=== PATIENT | female | born 1940 | race Caucasian/White ===

== ENCOUNTER 2020-02-14 11:53 | Inpatient (IN) ==
[2020-02-14] MEDS ORDERED: 0.9 % SODIUM CHLORIDE 2,000 ML IV ONE (12:13)
[2020-02-14] MEDS ORDERED: LEVOFLOXACIN 500 MG/100 ML BAG IV ONE (12:16)
[2020-02-14] MEDS ORDERED: VANCOMYCIN 1,000 MG in 0.9 % SODIUM CHLORIDE 250 ML IV ONE (12:16)
[2020-02-14] MEDS ORDERED: ACETAMINOPHEN 325 MG TABLET PO ONE (12:16)
--- NOTE | 2020-02-14 12:31 | Emergency Department Note ---
Fever HPI General Chief Complaint: Fever Stated Complaint: fever, altered LOC Time Seen by Provider: 02/14/20 12:13 Source: patient and EMS Mode of arrival: EMS Limitations: no limitations History of Present Illness HPI Narrative: Narrative: 79-year-old female comes in for a fever of 104. She is also having trouble breathing. Looks like she had a spinal fusion lumbar by Dr. Bates 3 weeks ago-but this is healed well. And she had a UTI diagnosed 10 days ago by Bladimir Dickey here in the ER. She followed up the next day in clinic. I reviewed those 2 notes-she is supposed to have taken Macrobid for the UTI but it is not clear to me whether or not she did and she cannot tell me-she is a little bit confused this morning. She was also treated for BPPV with meclizine. Today the shortness of breath is causing her to have a respiration rate between 30 and 40-but her oxygen level of 90 without supplementation. It is unclear exactly how long she has had a fever but at least 1 or 2 days Her was asked again to take her to physical therapy for the vertigo today but instead brought her to the hospital because of her trouble breathing Related Data Home Medications Medication Instructions Recorded Confirmed atorvastatin 80 mg tablet mg PO 08/08/19 12/14/19 gabapentin 300 mg capsule 300 mg PO BID cap 08/08/19 12/14/19 hydrochlorothiazide 25 mg tablet mg PO 08/08/19 12/14/19 letrozole 2.5 mg tablet mg PO 08/08/19 12/14/19 nortriptyline 10 mg capsule mg PO 08/08/19 12/14/19 Previous Rx's Medication Instructions Recorded nitrofurantoin macrocrystal 100 mg PO Q12H #10 cap 02/04/20 meclizine 25 mg tablet 25 mg PO BID PRN #20 tab 02/07/20 Allergies Allergy/AdvReac Type Severity Reaction Status Date / Time iodine Allergy Severe Erythema Verified 12/14/19 11:51 penicillin G Allergy Severe Blisters Verified 12/14/19 11:51 tetracycline Allergy Severe Blisters Verified 12/14/19 11:51 Sulfa (Sulfonamide Allergy Intermediate Nausea Verified 02/04/20 17:21 Antibiotics) azithromycin Allergy Unknown Unknown Verified 02/05/20 11:14 Carbapenems Allergy Unknown Unknown Verified 02/05/20 11:14 Carbonic Anhydrase Inhibitors Allergy Unknown Unknown Verified 02/05/20 11:14 Cephalosporins Allergy Unknown Unknown Verified 02/05/20 11:14 doxycycline [DOXYCYCLINE] Allergy Unknown Unknown Verified 02/05/20 11:14 Iodinated Contrast Media Allergy Unknown Unknown Verified 02/05/20 11:14 Macrolide Antibiotics Allergy Unknown Unknown Verified 02/05/20 11:14 penicillin G procaine Allergy Unknown Unknown Verified 02/05/20 11:14 Penicillins Allergy Unknown Unknown Verified 02/05/20 11:14 pseudoephedrine Allergy Unknown Unknown Verified 02/05/20 11:14 sulfamethoxazole Allergy Unknown Unknown Verified 02/05/20 11:14 Sulfonylureas Allergy Unknown Unknown Verified 02/05/20 11:14 Tetracyclines Allergy Unknown Unknown Verified 02/05/20 11:14 Thiazides Allergy Unknown Unknown Verified 02/05/20 11:14 trimethoprim Allergy Unknown Unknown Verified 02/05/20 11:14 hydrocodone AdvReac Intermediate Hallucinati Verified 02/05/20 11:14 ng Review of Systems ROS ROS Narrative: Narrative: All systems ED: reviewed and negative except as stated. PFSH Narrative Patient History Narrative: Narrative: Medical/Surgical/Family History All Active Problems (Updated 02/14/20 @ 15:26 by Nestor Randle MD) Pneumonia (Acute) Sepsis (Acute) Benign paroxysmal positional vertigo (Acute) Acute UTI (Acute) Shortness of breath (Acute) H/O total hip arthroplasty (Acute) H/O bilateral mastectomy (Acute) History of breast cancer (Acute) Low back pain (Acute) Medical History (Updated 02/14/20 @ 15:26 by Nestor Randle MD) History of breast cancer (Acute) Low back pain (Acute) Surgical History (Updated 02/14/20 @ 12:36 by Nestor Randle MD) H/O bilateral mastectomy (Acute) H/O total hip arthroplasty (Acute) History of lumbosacral spine surgery (Acute) Social History Smoking Status: Never smoker Alcohol Intake Frequency: does not drink Substance Use: does not use Exam Narrative Narrative: Narrative: Mild tachypnea noted-however she can speak in full sente nces but she seems to be somewhat confused. Normocephalic atraumatic. Conjunctive are clear sclerae white nonicteric. No nasal discharge or congestion. Oropharynx pink and moist. Neck is supple without lymphadenopathy or thyromegaly. Heart is regular rate and rhythm no murmur appreciated. Lungs clear to auscultation bilaterally-however she has difficulty taking a deep breath. She does have an end expiratory wheeze. Abdomen soft nontender nondistended. No peritoneal signs or guarding. No pedal edema. +2 radial pulse. She is able to sit up for me and I did look at her wound site from lumbar surgery-there is no redness or drainage. The wound site looks very clean and well-healed. General Limitations: no limitations Course Vital Signs Vital signs: Vital Signs Temperature 104.1 F H 02/14/20 11:53 Pulse Rate 118 H 02/14/20 11:53 Respiratory Rate 25 H 02/14/20 11:53 Blood Pressure 148/127 02/14/20 11:53 Pulse Oximetry (%) 91 02/14/20 11:53 Temperature 100.7 F H 02/14/20 17:33 Pulse Rate 94 H 02/14/20 17:33 Respiratory Rate 28 H 02/14/20 17:33 Blood Pressure 139/63 02/14/20 17:33 Pulse Oximetry (%) 93 02/14/20 17:33 MDM MDM Narrative Medical decision making narrative: Narrative: Suspect sepsis from respiratory issue versus UTI versus other infection. Noted recent surgery but she is not complaining of significant pain-surgical site is healed well. We will go ahead and get cultures start antibiotics-it is noted that her multiple allergies limit antibiotic choices. Laboratories ordered as well as chest x-ray Chest x-ray shows bilateral pneumonia worse on the right. ABG shows pH 7.53 PCO2 of 31 PO2 of 65 on room air-we will start her on oxygen. Rapid flu and Covid were negative. Sent off for PCR Noted leukocytosis and elevated procalcitonin. Likely early sepsis from pneumonia. When I reevaluated her a note that she is much more talkative and breathing much better after getting albuterol and other treatments. However she remains tachypneic and febrile despite acetaminophen. She is agreeable with coming in the hospital when I discussed her situation and results with her. I then discussed the situation with Dr. Mccurdy who agreed except the patient for further care and evaluation in the hospital Lab Data Lab results reviewed: Yes I reviewed the patient's lab results. Result diagrams: 02/14/20 12:35 02/14/20 12:35 Labs: Lab Results 02/14/20 02/14/20 02/14/20 Range/Units 12:35 12:35 12:35 WBC 16.4 H (4.5-11.0) K/mcL RBC 3.91 L (4.00-5.20) M/mcL Hgb 13.5 (12.0-15.0) g/dL Hct 39.9 (36.0-48.0) % MCV 102.0 H (80.0-100.0) fL MCH 34.5 H (26.0-34.0) pg MCHC 33.8 (31.0-36.0) g/dL RDW 12.3 (11.5-14.5) % Plt Count 195 (140-440) K/mcL MPV 11.5 H (7.4-10.4) fL Neut % (Auto) 90.5 H (38.0-78.0) % Lymph % (Auto) 3.5 L (15.0-49.0) % [place] % (Auto) 3.8 (1.0-12.0) % Eos % (Auto) 2.1 (0.0-7.0) % Baso % (Auto) 0.1 (0.0-2.0) % Lymph # (Auto) 0.57 L (1.50-4.80) K/mcL [place] # (Auto) 0.62 (0.10-0.90) K/mcL Eos # (Auto) 0.34 (0.00-0.70) K/mcL Baso # (Auto) 0.02 (0.00-0.20) K/mcL Absolute Neutrophils 14.81 H (1.80-8.00) K/mcL VBG Lactic Acid 1.7 (0.5-2.0) mmol/L Sodium 135 (133-145) mmol/L Potassium 4.0 (3.3-5.1) mmol/L Chloride 96 (96-108) mmol/L Carbon Dioxide 23 (22-30) mmol/L Anion Gap 16.0 (8.0-16.0) BUN 19 (8-23) mg/dL Creatinine 0.9 (0.6-1.1) mg/dL GFR Calculation 60 Glucose 149 H (70-105) mg/dL Calcium 9.6 (8.6-10.4) mg/dL Total Bilirubin 0.7 (0.1-1.0) mg/dL AST 34 H (<32) U/L ALT 22 (<40) U/L Alkaline Phosphatase 191 H (39-117) U/L Troponin T (<0.03) ng/mL C-Reactive Protein 14.10 H (0.03-0.80) mg/dL Total Protein 7.5 (5.9-8.4) gm/dL Albumin 4.0 (3.2-5.2) gm/dL Globulin 3.5 (2.2-3.7) gm/dL Albumin/Globulin Ratio 1.1 (1.0-2.3) Procalcitonin (<0.10) ng/mL Urine Color Urine Appearance (Clear) Urine pH (5.0-9.0) Ur Specific [place] (1.000-1.035) Urine Protein (Negative) mg/dL Urine Glucose (UA) (Negative) mg/dL Urine Ketones (Negative) mg/dL Urine Occult Blood (Negative) mg/dL Urine Nitrate (Negative) Urine Bilirubin (Negative) mg/dL Urine Urobilinogen mg/dL Ur Leukocyte Esterase (Negative) /ug Urine RBC (0-3) /hpf Urine WBC (0-4) /hpf Ur Squamous Epith Cells (0-4) /hpf Urine Bacteria (0) /hpf Urine Mucus (None) /hpf Ur Culture Indicated? 02/14/20 02/14/20 02/14/20 Range/Units 12:35 12:35 13:10 WBC (4.5-11.0) K/mcL RBC (4.00-5.20) M/mcL Hgb (12.0-15.0) g/dL Hct (36.0-48.0) % MCV (80.0-100.0) fL MCH (26.0-34.0) pg MCHC (31.0-36.0) g/dL RDW (11.5-14.5) % Plt Count (140-440) K/mcL MPV (7.4-10.4) fL Neut % (Auto) (38.0-78.0) % Lymph % (Auto) (15.0-49.0) % [place] % (Auto) (1.0-12.0) % Eos % (Auto) (0.0-7.0) % Baso % (Auto) (0.0-2.0) % Lymph # (Auto) (1.50-4.80) K/mcL [place] # (Auto) (0.10-0.90) K/mcL Eos # (Auto) (0.00-0.70) K/mcL Baso # (Auto) (0.00-0.20) K/mcL Absolute Neutrophils (1.80-8.00) K/mcL VBG Lactic Acid (0.5-2.0) mmol/L Sodium (133-145) mmol/L Potassium (3.3-5.1) mmol/L Chloride (96-108) mmol/L Carbon Dioxide (22-30) mmol/L Anion Gap (8.0-16.0) BUN (8-23) mg/dL Creatinine (0.6-1.1) mg/dL GFR Calculation Glucose (70-105) mg/dL Calcium (8.6-10.4) mg/dL Total Bilirubin (0.1-1.0) mg/dL AST (<32) U/L ALT (<40) U/L Alkaline Phosphatase (39-117) U/L Troponin T < 0.01 (<0.03) ng/mL C-Reactive Protein (0.03-0.80) mg/dL Total Protein (5.9-8.4) gm/dL Albumin (3.2-5.2) gm/dL Globulin (2.2-3.7) gm/dL Albumin/Globulin Ratio (1.0-2.3) Procalcitonin 0.75 H (<0.10) ng/mL Urine Color Yellow Urine Appearance Clear (Clear) Urine pH 6.0 (5.0-9.0) Ur Specific [place] 1.016 (1.000-1.035) Urine Protein 30 A (Negative) mg/dL Urine Glucose (UA) Negative (Negative) mg/dL Urine Ketones Negative (Negative) mg/dL Urine Occult Blood Negative (Negative) mg/dL Urine Nitrate Negative (Negative) Urine Bilirubin Negative (Negative) mg/dL Urine Urobilinogen Negative mg/dL Ur Leukocyte Esterase Negative (Negative) /ug Urine RBC < 1 (0-3) /hpf Urine WBC 3 (0-4) /hpf Ur Squamous Epith Cells 0 (0-4) /hpf Urine Bacteria None (0) /hpf Urine Mucus Few A (None) /hpf Ur Culture Indicated? No Radiology Data Radiology results reviewed: Yes I reviewed the patient's radiology results. EKG Data EKG #1: EKG attestation: Yes I reviewed and interpreted this EKG. and Yes There are no EKG findings of acute coronary syndrome EKG results narrative: EKG shows a rate of 120 several PACs. Sinus tachycardia is noted Discharge Plan Patient/Caregiver Discharge Instructions Pt seen by [employer]/PA only: No Clinical Impression: Pneumonia Qualifiers: Pneumonia type: due to unspecified organism Laterality: right Lung location: lower lobe of lung Qualified Code(s): J18.9 - Pneumonia, unspecified organism Sepsis Qualifiers: Sepsis type: sepsis due to unspecified organism Sepsis acute organ dysfunction status: with acute organ dysfunction Severe sepsis acute organ dysfunction type: acute respiratory failure Acute respiratory failure type: with hypoxia Severe sepsis shock status: without septic shock Qualified Code(s): A41.9 - Sepsis, unspecified organism Patient Disposition: Xfer As Inpt ([facility]) Condition: Serious Follow up with: Chuy Bates MD [Physician] - Salvador Ontiveros MD [Primary Care Provider] - Prescriptions: No Action meclizine 25 mg tablet 25 mg PO BID PRN (Reason: vertigo) Qty: 20 RF: 0 letrozole 2.5 mg tablet PO RF: 0 gabapentin 300 mg capsule 300 mg PO BID RF: 0 hydrochlorothiazide 25 mg tablet PO RF: 0 atorvastatin 80 mg tablet PO RF: 0 nortriptyline 10 mg capsule PO RF: 0 nitrofurantoin macrocrystal 100 mg capsule 100 mg PO Q12H Qty: 10 RF: 0
[2020-02-14] MEDS ORDERED: ALBUTEROL SULFATE 200 PUFF INHALER INH ONE (12:37)
[2020-02-14] MEDS ORDERED: TERBUTALINE 1 MG/ML VIAL SQ ONE (12:37)
--- NOTE | 2020-02-14 12:46 | XRay Report ---
HISTORY: Fever, sepsis, decreased level of consciousness, prior breast cancer FINDINGS: A subtle alveolar infiltrate has developed around the right lower hilum and there are prominent increased interstitial lung markings throughout the remainder of both lung reyna. No lobar consolidation is present. There is no pleural effusion. The heart size is normal. No lung mass is present. There are clips in the left axilla. Moderate arthritis is present in the left shoulder. No lytic or blastic metastasis are detected. Comparison the prior exam from 12/14/19 shows the infiltrates in both lungs are new. IMPRESSION: Mild bilateral pneumonia with the greatest involvement in the right lower lobe Interpreted and Authenticated by: Pool Radford 02/14/20
[2020-02-14 13:46] LABS: Basophils # (Auto) 0.02 K/mcL (0.00-0.20); Basophils % (Auto) 0.1 % (0.0-2.0); Eosinophils # (Auto) 0.34 K/mcL (0.00-0.70); Eosinophils % (Auto) 2.1 % (0.0-7.0); Hematocrit 39.9 % (36.0-48.0); Hemoglobin 13.5 g/dL (12.0-15.0); Lymphocytes # (Auto) 0.57 K/mcL (1.50-4.80); Lymphocytes % (Auto) 3.5 % (15.0-49.0); Mean Corpuscular HGB Conc 33.8 g/dL (31.0-36.0); Mean Platelet Volume 11.5 fL (7.4-10.4); Monocytes # (Auto) 0.62 K/mcL (0.10-0.90); Monocytes % (Auto) 3.8 % (1.0-12.0); Neutrophils % (Auto) 90.5 % (38.0-78.0); Platelet Count 195 K/mcL (140-440); RBC 3.91 M/mcL (4.00-5.20); Red Cell Distribution Width 12.3 % (11.5-14.5); WBC 16.4 K/mcL (4.5-11.0)
[2020-02-14 14:14] LABS: ALT/SGPT 22 U/L (<40); AST/SGOT 34 U/L (<32); Albumin/Globulin Ratio 1.1 (1.0-2.3); Alkaline Phosphatase 191 U/L (39-117); Bilirubin,Total 0.7 mg/dL (0.1-1.0); Blood Urea Nitrogen 19 mg/dL (8-23); Calcium 9.6 mg/dL (8.6-10.4); Carbon Dioxide 23 mmol/L (22-30); Chloride 96 mmol/L (96-108); Globulin 3.5 gm/dL (2.2-3.7); Glomerular Filtration Rate 60; Glucose 149 mg/dL (70-105)
[2020-02-14 14:15] LABS: Appearance,Urine CLEAR (Clear); Bilirubin,Urine Negative (Negative); Color,Urine YELLOW; Culture Indicated,Urine No; Glucose,Urine (UA) Negative (Negative); Ketones,Urine Negative (Negative); Leukocyte Esterase,Urine Negative /ug (Negative); Mucus,Urine FEW /hpf; Nitrate,Urine Negative (Negative); Protein,Urine 30 mg/dL (Negative); Specific Gravity,Urine 1.016 (1.000-1.035); Urine Blood Negative (Negative); Urine RBC < 1 /hpf (0-3); Urine Squamous Epithelial Cell 0 /hpf (0-4); Urine WBC 3 /hpf (0-4); Urobilinogen,Urine Negative
--- NOTE | 2020-02-14 17:46 | Internal Med History&Physical ---
HPI History of Present Illness Patient information: Note initiated : 02/14/20 at 5:46 pm Service Date, if different from initiated Date: [] Patient: Angie Balderas a 79 y/o F admitted on for fever, altered LOC. Chief Complaint: Weakness, fever, shaking chills and shortness of breath History of present illness: Ms. Balderas is a 79 year old F with known history of breast cancer/hypertension who lives with her and presents to the ER for evaluation. Patient has been experiencing shaking chills/fever/cough and shortness of breath since late yesterday evening. She woke up this morning confused and feeling puny with associated malaise but no diarrhea or nausea or vomiting. With increasing concerns patient's called 911 and was brought into the ER. Initial work-up was consistent with severe sepsis with elevated white count/fever of 102.5/tachycardia tachypnea and hypoxia. Chest imaging consistent with multifocal bilateral pneumonia. Patient was started on antibiotic coverage after cultures were drawn. Covid 19 test was negative. Hospital service was consulted for admission in light of above. At the time of evaluation patient is feeling a lot better. She is able to talk and provide a detailed history. She denies recent sick contacts. She has had back surgery 4 months ago and has been at home for the major part of the last few months. She denies changes in medications. She denies diarrhea, dysuria, bloody stool, chest pain, lightheadedness dizziness. She endorses to frequent symptoms of vertigo for which he undergoes vestibular rehab. Review of systems 10 point review system was performed and is negative except for ones discussed above PFSH PFSH All Active Problems (Updated 02/14/20 @ 15:26 by Nestor Randle MD) Pneumonia (Acute) Sepsis (Acute) Benign paroxysmal positional vertigo (Acute) Acute UTI (Acute) Shortness of breath (Acute) H/O total hip arthroplasty (Acute) H/O bilateral mastectomy (Acute) History of breast cancer (Acute) Low back pain (Acute) Medical History (Updated 02/14/20 @ 15:26 by Nestor Randle MD) History of breast cancer (Acute) Low back pain (Acute) Surgical History (Updated 02/14/20 @ 12:36 by Nestor Randle MD) H/O bilateral mastectomy (Acute) H/O total hip arthroplasty (Acute) History of lumbosacral spine surgery (Acute) Social History (Updated 02/05/20 @ 11:31 by Lyssa Haji CMA) household members: spouse housing: apartment lives independently: Yes marital status: smoking status: Never smoker alcohol intake frequency: does not drink substance use type: does not use MEDS/ALLERGIES Home Medications and Allergies Home Medications Medication Instructions Recorded Confirmed Type atorvastatin 80 mg tablet mg PO 08/08/19 12/14/19 History gabapentin 300 mg capsule 300 mg PO BID cap 08/08/19 12/14/19 History hydrochlorothiazide 25 mg tablet mg PO 08/08/19 12/14/19 History letrozole 2.5 mg tablet mg PO 08/08/19 12/14/19 History nortriptyline 10 mg capsule mg PO 08/08/19 12/14/19 History nitrofurantoin macrocrystal 100 mg PO Q12H #10 cap 02/04/20 Rx meclizine 25 mg tablet 25 mg PO BID PRN #20 tab 02/07/20 02/07/20 Rx Allergies Allergy/AdvReac Type Severity Reaction Status Date / Time iodine Allergy Severe Erythema Verified 12/14/19 11:51 penicillin G Allergy Severe Blisters Verified 12/14/19 11:51 tetracycline Allergy Severe Blisters Verified 12/14/19 11:51 Sulfa (Sulfonamide Allergy Intermediate Nausea Verified 02/04/20 17:21 Antibiotics) azithromycin Allergy Unknown Unknown Verified 02/05/20 11:14 Carbapenems Allergy Unknown Unknown Verified 02/05/20 11:14 Carbonic Anhydrase Inhibitors Allergy Unknown Unknown Verified 02/05/20 11:14 Cephalosporins Allergy Unknown Unknown Verified 02/05/20 11:14 doxycycline [DOXYCYCLINE] Allergy Unknown Unknown Verified 02/05/20 11:14 Iodinated Contrast Media Allergy Unknown Unknown Verified 02/05/20 11:14 Macrolide Antibiotics Allergy Unknown Unknown Verified 02/05/20 11:14 penicillin G procaine Allergy Unknown Unknown Verified 02/05/20 11:14 Penicillins Allergy Unknown Unknown Verified 02/05/20 11:14 pseudoephedrine Allergy Unknown Unknown Verified 02/05/20 11:14 sulfamethoxazole Allergy Unknown Unknown Verified 02/05/20 11:14 Sulfonylureas Allergy Unknown Unknown Verified 02/05/20 11:14 Tetracyclines Allergy Unknown Unknown Verified 02/05/20 11:14 Thiazides Allergy Unknown Unknown Verified 02/05/20 11:14 trimethoprim Allergy Unknown Unknown Verified 02/05/20 11:14 hydrocodone AdvReac Intermediate Hallucinati Verified 02/05/20 11:14 ng EXAM Constitutional Vitals: Temp Pulse Resp BP Pulse Ox 100.7 F H 94 H 28 H 139/63 93 02/14/20 17:33 02/14/20 17:33 02/14/20 17:33 02/14/20 17:33 02/14/20 17:33 Patient alert anxious Head normocephalic Oral cavity dry with crusted lips No ear nose discharge Eye movement symmetrical Neck supple no lymphadenopathy S1-S2 tachycardia regular Rapid shallow and labored breathing Nondistended nontender abdomen Lower extremity no cyanosis clubbing or joint swelling Skin no suspicious lesion Psych anxious but no hallucination Neuro normal higher function GCS 14 DATA Data Completed and Pending Labs: Labs from last 24 hours 02/14/20 02/14/20 02/14/20 13:10 12:35 12:35 WBC RBC Hgb Hct MCV MCH MCHC RDW Plt Count MPV Neut % (Auto) Lymph % (Auto) [place] % (Auto) Eos % (Auto) Baso % (Auto) Lymph # (Auto) [place] # (Auto) Eos # (Auto) Baso # (Auto) Absolute Neutrophils VBG Lactic Acid Sodium Potassium Chloride Carbon Dioxide Anion Gap BUN Creatinine GFR Calculation Glucose Calcium Total Bilirubin AST ALT Alkaline Phosphatase Troponin T < 0.01 C-Reactive Protein Total Protein Albumin Globulin Albumin/Globulin Ratio Procalcitonin 0.75 H Urine Color Yellow Urine Appearance Clear Urine pH 6.0 Ur Specific [place] 1.016 Urine Protein 30 A Urine Glucose (UA) Negative Urine Ketones Negative Urine Occult Blood Negative Urine Nitrate Negative Urine Bilirubin Negative Urine Urobilinogen Negative Ur Leukocyte Esterase Negative Urine RBC < 1 Urine WBC 3 Ur Squamous Epith Cells 0 Urine Bacteria None Urine Mucus Few A Ur Culture Indicated? No 02/14/20 02/14/20 02/14/20 12:35 12:35 12:35 WBC 16.4 H RBC 3.91 L Hgb 13.5 Hct 39.9 MCV 102.0 H MCH 34.5 H MCHC 33.8 RDW 12.3 Plt Count 195 MPV 11.5 H Neut % (Auto) 90.5 H Lymph % (Auto) 3.5 L [place] % (Auto) 3.8 Eos % (Auto) 2.1 Baso % (Auto) 0.1 Lymph # (Auto) 0.57 L [place] # (Auto) 0.62 Eos # (Auto) 0.34 Baso # (Auto) 0.02 Absolute Neutrophils 14.81 H VBG Lactic Acid 1.7 Sodium 135 Potassium 4.0 Chloride 96 Carbon Dioxide 23 Anion Gap 16.0 BUN 19 Creatinine 0.9 GFR Calculation 60 Glucose 149 H Calcium 9.6 Total Bilirubin 0.7 AST 34 H ALT 22 Alkaline Phosphatase 191 H Troponin T C-Reactive Protein 14.10 H Total Protein 7.5 Albumin 4.0 Globulin 3.5 Albumin/Globulin Ratio 1.1 Procalcitonin Urine Color Urine Appearance Urine pH Ur Specific [place] Urine Protein Urine Glucose (UA) Urine Ketones Urine Occult Blood Urine Nitrate Urine Bilirubin Urine Urobilinogen Ur Leukocyte Esterase Urine RBC Urine WBC Ur Squamous Epith Cells Urine Bacteria Urine Mucus Ur Culture Indicated? A/P Narrative A/P Narrative: * Severe sepsis with endorgan dysfunction including acute change mental status/hypoxia and elevated LFTs. Broad antibiotic coverage/management guidelines/crystalloids * Bilateral multifocal Pneumonia likely community-acquired. Initiate antibiotic coverage including Levaquin/vancomycin for gram-negative/gram-positive coverage * Acute respiratory failure with hypoxia continue supplemental oxygen. Secondary to pneumonia * History of hypertension continue thiazide neuropathy continue nortriptyline/gabapentin * History of breast cancer on letrozole * History of vertigo on meclizine * Hyperlipidemia on statin * Prophylaxis Heparin Plan * Inpatient PCU admission made of severe sepsis and endorgan dysfunction * Antibiotic coverage/supplemental oxygen/hemodynamic support * Pre-existing medical condition management on home medications * PT OT nutrition support * Discharge planning Time Spent With Patient Time: Total time spent is greater than 50% in coordination of care (as documented) at patient's floor/unit and/or counseling patient:
[2020-02-14] MEDS ORDERED: MELATONIN 3 MG TABLET PO PRN (20:19)
[2020-02-14] MEDS ORDERED: IPRATROPIUM/ALBUTEROL 3 ML AMPUL.NEB NEB PRN (20:19)
[2020-02-14] MEDS ORDERED: POTASSIUM CHLORIDE 20 MEQ PACKET PO PRN (20:19)
[2020-02-14] MEDS ORDERED: POTASSIUM CHLORIDE 40 MEQ in DEXTROSE 5% IN WATER 500 ML IV PRN (20:19)
[2020-02-14] MEDS ORDERED: ONDANSETRON 4 MG/2 ML VIAL IV PRN (20:19)
[2020-02-14] MEDS ORDERED: VANCOMYCIN PER PHARMACY IV SCH (20:19)
[2020-02-14] MEDS ORDERED: ACETAMINOPHEN 325 MG TABLET PO PRN (20:19)
[2020-02-14] MEDS ORDERED: 0.9 % SODIUM CHLORIDE 1,000 ML IV SCH (20:19)
[2020-02-14] MEDS ORDERED: ONDANSETRON 4 MG ODT TABLET SL PRN (20:19)
[2020-02-14] MEDS ORDERED: NOREPINEPHRINE BITARTRATE 8 MG in 0.9 % SODIUM CHLORIDE 242 ML IV PRN (20:19)
[2020-02-14] MEDS ORDERED: ACETAMINOPHEN 650 MG/65 ML BAG IV PRN (20:19)
[2020-02-14] MEDS ORDERED: POLYETHYLENE GLYCOL 3350 17 GM PACKET PO PRN (20:19)
[2020-02-14] MEDS ORDERED: BISACODYL 10 MG SUPP.RECT PR PRN (20:19)
[2020-02-14] MEDS ORDERED: MAGNESIUM SULFATE 2 GM/50 ML BAG IV PRN (20:19)
[2020-02-14] MEDS: 0.9 % SODIUM CHLORIDE 250 ML IV SCH (20:54)
[2020-02-14] MEDS ORDERED: VANCOMYCIN 1,000 MG in 0.9 % SODIUM CHLORIDE 250 ML IV SCH (21:00)
[2020-02-14] MEDS: BUDESONIDE 0.5 MG/2 ML AMPUL.NEB NEB SCH (21:00)
[2020-02-14] MEDS ORDERED: SENNOSIDES/DOCUSATE SODIUM 1 TAB TABLET PO SCH (21:00)
[2020-02-14] MEDS: HEPARIN 5,000 UNIT/ML VIAL SQ SCH (21:00)
[2020-02-14] MEDS: DOCUSATE SODIUM 100 MG CAPSULE PO SCH (21:09)
[2020-02-14] MEDS: 0.9 % SODIUM CHLORIDE 10 ML SYRINGE IV SCH (21:10)
[2020-02-14] MEDS: metroNIDAZOLE 500 MG/100 ML BAG IV SCH (23:54)
[2020-02-15] MEDS: metroNIDAZOLE 500 MG/100 ML BAG IV SCH ×3 (05:08→17:25)
[2020-02-15] MEDS: 0.9 % SODIUM CHLORIDE 10 ML SYRINGE IV SCH ×4 (05:09→22:40)
[2020-02-15 07:00] LABS: Basophils # (Auto) 0.01 K/mcL (0.00-0.20); Basophils % (Auto) 0.1 % (0.0-2.0); Eosinophils % (Auto) 5.3 % (0.0-7.0); Hematocrit 36.5 % (36.0-48.0); Hemoglobin 11.7 g/dL (12.0-15.0); Lymphocytes # (Auto) 0.73 K/mcL (1.50-4.80); Lymphocytes % (Auto) 6.4 % (15.0-49.0); Mean Cell Volume 106.4 fL (80.0-100.0); Mean Corpuscular HGB Conc 32.1 g/dL (31.0-36.0); Mean Platelet Volume 11.5 fL (7.4-10.4); Monocytes # (Auto) 0.96 K/mcL (0.10-0.90); Monocytes % (Auto) 8.4 % (1.0-12.0); Neutrophils % (Auto) 79.8 % (38.0-78.0); Platelet Count 174 K/mcL (140-440); RBC 3.43 M/mcL (4.00-5.20); Red Cell Distribution Width 12.5 % (11.5-14.5); WBC 11.4 K/mcL (4.5-11.0)
[2020-02-15 07:36] LABS: ALT/SGPT 17 U/L (<40); AST/SGOT 31 U/L (<32); Albumin 3.4 gm/dL (3.2-5.2); Albumin/Globulin Ratio 1.1 (1.0-2.3); Alkaline Phosphatase 154 U/L (39-117); Bilirubin,Direct < 0.2 mg/dL (<0.3); Bilirubin,Total 0.5 mg/dL (0.1-1.0); Blood Urea Nitrogen 21 mg/dL (8-23); Calcium 9.1 mg/dL (8.6-10.4); Carbon Dioxide 20 mmol/L (22-30); Chloride 96 mmol/L (96-108); Glomerular Filtration Rate 82; Glucose 106 mg/dL (70-105); Lactate Dehydrogenase 287 U/L (135-225); Phosphorous 2.6 mg/dL (2.5-4.5); Triglycerides 131 mg/dL (<150); Uric Acid 5.6 mg/dL (2.5-8.0)
[2020-02-15] MEDS: BUDESONIDE 0.5 MG/2 ML AMPUL.NEB NEB SCH ×2 (08:00→22:28)
[2020-02-15] MEDS: DOCUSATE SODIUM 100 MG CAPSULE PO SCH ×2 (08:37→21:48)
[2020-02-15] MEDS: 0.9 % SODIUM CHLORIDE 250 ML IV SCH ×3 (08:37→13:24)
[2020-02-15] MEDS ORDERED: VANCOMYCIN 1,000 MG in 0.9 % SODIUM CHLORIDE 250 ML IV SCH ×2 (09:00→21:00)
[2020-02-15] MEDS ORDERED: MULTIVIT,THER IRON,CA,FA & MIN 1 TABLET PO SCH (09:00)
[2020-02-15] MEDS ORDERED: LEVOFLOXACIN 750 MG/150 ML BAG IV SCH (10:00)
[2020-02-15] MEDS: HEPARIN 5,000 UNIT/ML VIAL SQ SCH ×2 (10:52→21:47)
[2020-02-15] MEDS ORDERED: MELATONIN 3 MG TABLET PO PRN (12:50)
[2020-02-15] MEDS ORDERED: ONDANSETRON 4 MG/2 ML VIAL IV PRN (12:50)
[2020-02-15] MEDS ORDERED: ONDANSETRON 4 MG ODT TABLET SL PRN (12:50)
[2020-02-15] MEDS ORDERED: BISACODYL 10 MG SUPP.RECT PR PRN (12:50)
[2020-02-15] MEDS ORDERED: POTASSIUM CHLORIDE 40 MEQ in DEXTROSE 5% IN WATER 500 ML IV PRN (12:50)
[2020-02-15] MEDS ORDERED: VANCOMYCIN PER PHARMACY IV SCH (12:50)
[2020-02-15] MEDS ORDERED: POLYETHYLENE GLYCOL 3350 17 GM PACKET PO PRN (12:50)
[2020-02-15] MEDS ORDERED: MAGNESIUM SULFATE 2 GM/50 ML BAG IV PRN (12:50)
[2020-02-15] MEDS ORDERED: HYDROcodone/APAP 10/325MG TABLET PO PRN (12:50)
[2020-02-15] MEDS ORDERED: MECLIZINE 25 MG TABLET PO PRN (12:50)
[2020-02-15] MEDS ORDERED: POTASSIUM CHLORIDE 20 MEQ PACKET PO PRN (12:50)
[2020-02-15] MEDS ORDERED: ACETAMINOPHEN 650 MG/65 ML BAG IV PRN (12:50)
[2020-02-15] MEDS ORDERED: NOREPINEPHRINE BITARTRATE 8 MG in 0.9 % SODIUM CHLORIDE 242 ML IV PRN (12:50)
[2020-02-15] MEDS ORDERED: ACETAMINOPHEN 325 MG TABLET PO PRN (12:50)
[2020-02-15] MEDS ORDERED: traMADol 50 MG TABLET PO PRN (12:50)
[2020-02-15] MEDS ORDERED: IPRATROPIUM/ALBUTEROL 3 ML AMPUL.NEB NEB PRN (12:50)
--- NOTE | 2020-02-15 12:53 | Internal Med Progress Note ---
SUBJECTIVE Subjective Patient information: Note initiated : 02/15/20 at 12:50 pm Service Date, if different from initiated Date: [] Patient: Angie Balderas a 79 y/o F admitted on 02/14/20 for fever, altered LOC. Chief Complaint: [] Interval history: History of present illness: Ms. Balderas is a 79 year old F with known history of breast cancer/hypertension who lives with her and presents to the ER for evaluation. Patient has been experiencing shaking chills/fever/cough and shortness of breath since late yesterday evening. She woke up this morning confused and feeling puny with associated malaise but no diarrhea or nausea or vomiting. With increasing concerns patient's called 911 and was brought into the ER. Initial work-up was consistent with severe sepsis with elevated white count/fever of 102.5/tachycardia tachypnea and hypoxia. Chest imaging consistent with multifocal bilateral pneumonia. Patient was started on antibio tic coverage after cultures were drawn. Covid 19 test was negative. Hospital service was consulted for admission in light of above. At the time of evaluation patient is feeling a lot better. She is able to talk and provide a detailed history. She denies recent sick contacts. She has had back surgery 4 months ago and has been at home for the major part of the last few months. She denies changes in medications. She denies diarrhea, dysuria, bloody stool, chest pain, lightheadedness dizziness. She endorses to frequent symptoms of vertigo for which he undergoes vestibular rehab. 02/14-patient doing a lot better. White count down from 16.4-11.4. Currently on room air. Tachypnea improved. Blood pressure stable. Transfer to medical floor. COVID-19 negative. LFTs downtrending. Tachycardia improving. Continuing antibiotic coverage on Levaquin/vancomycin Constitutional Vitals: Vital Signs Temp Pulse Resp BP Pulse Ox 98.6 F 88 20 88/71 95 02/15/20 12:01 02/15/20 12:05 02/15/20 12:05 02/15/20 12:01 02/15/20 12:05 Period Temp Pulse Resp BP Sys/Restrepo Pulse Ox Last 24 Hr 97.2 F-103.2 F 73-118 10-37 88-196/58-102 91-100 Intake and Output 02/14/20 02/15/20 02/15/20 21:59 05:59 13:59 Intake Total 2350 100 350 Output Total 0 400 Balance 2350 -300 350 Weight 66.088 kg 66.088 kg Patient Weight 02/16/20 05:59 Weight 66.088 kg Alert oriented Nonlabored breathing No telemetry events No anxiety Intake & Output: Intake & Output 02/14/20 02/15/20 02/15/20 21:59 05:59 13:59 Intake Total 2350 100 350 Output Total 0 400 Balance 2350 -300 350 Weight 66.088 kg 66.088 kg Intake: IV 2350 100 350 Sodium Chloride 0.9% 2,000 ml @ 2000 Wide Open IV .Q0M ONE Rx#: [id number] Vancomycin 1,000 mg In Sodium 250 250 Chloride 0.9% 250 ml @ 250 mls/ hr IV Q12H [facility] Rx#:[id number] Output: Urine Catheter Amount 0 400 Other: Urine Appearance Cloudy Uretheral ([place]) Clear Clear Urine Color Dark Yellow Uretheral ([place]) Dark Yellow Dark Yellow Urine Odor Strong Uretheral ([place]) Normal Normal Stool Size Large Stool Color Brown Green Stool Consistency Soft # Bowel Movements 1 OBJ DATA Labs CBC & Chem 7: 02/15/20 05:25 02/15/20 05:25 Labs: Abnormal Lab Results 02/15/20 02/15/20 02/14/20 05:25 05:25 13:10 WBC 11.4 H RBC 3.43 L Hgb 11.7 L MCV 106.4 H MCH 34.1 H MPV 11.5 H Neut % (Auto) 79.8 H Lymph % (Auto) 6.4 L Lymph # (Auto) 0.73 L [place] # (Auto) 0.96 H Absolute Neutrophils 9.07 H Carbon Dioxide 20 L Anion Gap 18.0 H Glucose 106 H GGT 120 H AST Alkaline Phosphatase 154 H Lactate Dehydrogenase 287 H C-Reactive Protein Procalcitonin Urine Protein 30 A Urine Mucus Few A 02/14/20 02/14/20 02/14/20 12:35 12:35 12:35 WBC 16.4 H RBC 3.91 L Hgb MCV 102.0 H MCH 34.5 H MPV 11.5 H Neut % (Auto) 90.5 H Lymph % (Auto) 3.5 L Lymph # (Auto) 0.57 L [place] # (Auto) Absolute Neutrophils 14.81 H Carbon Dioxide Anion Gap Glucose 149 H GGT AST 34 H Alkaline Phosphatase 191 H Lactate Dehydrogenase C-Reactive Protein 14.10 H Procalcitonin 0.75 H Urine Protein Urine Mucus Meds: Medications Acetaminophen (Tylenol) 650 mg PO Q4-6HP PRN; Protocol PRN Reason: Per Pain Protocol/Fever > 101 Last Admin: 02/14/20 21:01 Dose: 650 mg Documented by: Albuterol/Ipratropium (Duoneb) 3 ml NEB Q4HP PRN PRN Reason: Shortness Of Breath Bisacodyl (Dulcolax) 10 mg [place] Q2-3DAYS PRN PRN Reason: Constipation Budesonide (Pulmicort) 0.5 mg NEB Q12 [facility] Last Admin: 02/15/20 08:00 Dose: 0.5 mg Documented by: Docusate Sodium (Colace) 100 mg PO BID [facility] Last Admin: 02/15/20 08:37 Dose: Not Given Documented by: Guaifenesin (Robitussin) 200 mg PO Q4HP PRN PRN Reason: Congestion Heparin Sodium (Porcine) (Heparin) 5,000 unit SQ Q12 [facility] Last Admin: 02/15/20 10:52 Dose: 5,000 unit Documented by: Potassium Chloride 40 meq/ (Dextrose) 520 mls @ 130 mls/hr IV UD PRN PRN Reason: K+ = or < 3.5 Acetaminophen (Ofirmev) 650 mg in 65 mls @ 130 mls/hr IV Q6HP PRN; Protocol PRN Reason: Per Pain Protocol/Fever > 101 Magnesium Sulfate (Magnesium Sulfate) 2 gm in 50 mls @ 50 mls/hr IV UD PRN PRN Reason: MG = or < 1.7 Last Admin: 02/15/20 12:28 Dose: 50 mls/hr Documented by: Metronidazole (Flagyl) 500 mg in 100 mls @ 100 mls/hr IV Q6H [facility]; Protocol Last Admin: 02/15/20 12:25 Dose: 100 mls/hr Documented by: Sodium Chloride (Sodium Chloride 0.9%) 1,000 mls @ 50 mls/hr IV .Q20H [facility] Stop: 02/17/20 08:18 Last Admin: 02/14/20 20:53 Dose: 50 mls/hr Documented by: Levofloxacin (Levaquin) 750 mg in 150 mls @ 100 mls/hr IV Q24H [facility]; Protocol Last Admin: 02/15/20 10:52 Dose: 100 mls/hr Documented by: Norepinephrine Bitartrate 8 mg (/ Sodium Chloride) 250 mls @ 18.75 mls/hr IV Q14H PRN; Protocol PRN Reason: Keep MAP>70 Sodium Chloride (Sodium Chloride 0.9%) 250 mls @ 20 mls/hr IV .[id number] [facility] Last Admin: 02/15/20 08:37 Dose: Not Given Documented by: Vancomycin HCl 1,000 mg/ (Sodium Chloride) 250 mls @ 250 mls/hr IV Q12H [facility] Last Infusion: 02/15/20 10:52 Dose: Infused Documented by: Iron Carb/Multivit/Drawing Tender/Folic Acid (Multivitamin W/Minerals) 1 tab PO DAILY [facility] Last Admin: 02/15/20 10:52 Dose: 1 tab Documented by: Melatonin (Melatonin 3mg Tablet) 3 mg PO HSP PRN PRN Reason: Insomnia Ondansetron HCl (Zofran Odt) 4 mg SL Q4-6HP PRN; Protocol PRN Reason: Nausea And Vomiting Ondansetron HCl (Zofran) 4 mg IV Q4-6HP PRN; Protocol PRN Reason: Nausea And Vomiting Last Admin: 02/15/20 11:13 Dose: 4 mg Documented by: Polyethylene Glycol (Miralax) 17 gm PO DAILYP PRN PRN Reason: Constipation Potassium Chloride (Klor-Con) 40 meq PO DAILYP PRN PRN Reason: K+ < 3.5 Senna/Docusate Sodium (Senna Plus Tablet) 1 tab PO HS [facility] Last Admin: 02/14/20 21:09 Dose: Not Given Documented by: Sodium Chloride (Saline Flush) 10 ml IV Q8 [facility] Last Admin: 02/15/20 12:28 Dose: Not Given Documented by: Vancomycin HCl (Vancomycin Per Pharmacy) 1 order IV UD [facility]; Protocol A/P Narrative A/P Narrative: * Severe sepsis with endorgan dysfunction- clinical improvement noted on Broad antibiotic coverage/management per guidelines/crystalloids, improved endorgan dysfunction. White count down from 16.4 11.4 * Bilateral multifocal Pneumonia likely community-acquired. Clinical improvement noted on antibiotic coverage including Levaquin/vancomycin/Flagyl for anaerobes/GNR/GPC coverage * Acute respiratory failure with hypoxia continue supplemental oxygen. Secondary to pneumonia * History of hypertension continue thiazide neuropathy continue nortriptyl ine/gabapentin * History of breast cancer continue home dose letrozole * History of vertigo on meclizine * Hyperlipidemia on statin * Prophylaxis Heparin Plan * Transfer to medical floor * Continue antibiotic coverage * Pre-existing medical condition management on home medications * PT OT nutrition support * Discharge planning Time Spent With Patient Time: Total time spent is greater than 50% in coordination of care (as document ed) at patient's floor/unit and/or counseling patient: QUALITY VTE Deep Vein Thrombosis/Pulmonary Embolism Present on Admission: No
[2020-02-15] MEDS: 0.9 % SODIUM CHLORIDE 1,000 ML IV SCH ×2 (14:41→22:19)
[2020-02-15] MEDS: ATORVASTATIN 40 MG TABLET PO SCH (21:47)
[2020-02-15] MEDS: GABAPENTIN 300 MG CAPSULE PO SCH (21:47)
[2020-02-15] MEDS: NORTRIPTYLINE 10 MG CAPSULE PO SCH (21:47)
[2020-02-15] MEDS: PROPRANOLOL 40 MG TABLET PO SCH (21:48)
[2020-02-15] MEDS: SENNOSIDES/DOCUSATE SODIUM 1 TAB TABLET PO SCH (21:49)
[2020-02-16] MEDS: metroNIDAZOLE 500 MG/100 ML BAG IV SCH ×5 (00:11→23:56)
[2020-02-16] MEDS: 0.9 % SODIUM CHLORIDE 250 ML IV SCH ×2 (04:16)
[2020-02-16] MEDS: 0.9 % SODIUM CHLORIDE 10 ML SYRINGE IV SCH ×3 (06:06→21:22)
[2020-02-16 06:57] LABS: Basophils # (Auto) 0.01 K/mcL (0.00-0.20); Basophils % (Auto) 0.2 % (0.0-2.0); Eosinophils # (Auto) 0.53 K/mcL (0.00-0.70); Eosinophils % (Auto) 8.6 % (0.0-7.0); Hematocrit 28.6 % (36.0-48.0); Hemoglobin 9.5 g/dL (12.0-15.0); Lymphocytes # (Auto) 0.98 K/mcL (1.50-4.80); Mean Cell Volume 101.4 fL (80.0-100.0); Mean Corpuscular HGB Conc 33.2 g/dL (31.0-36.0); Mean Platelet Volume 11.9 fL (7.4-10.4); Monocytes # (Auto) 0.63 K/mcL (0.10-0.90); Monocytes % (Auto) 10.3 % (1.0-12.0); Neutrophils % (Auto) 64.9 % (38.0-78.0); Platelet Count 166 K/mcL (140-440); RBC 2.82 M/mcL (4.00-5.20); Red Cell Distribution Width 12.3 % (11.5-14.5); WBC 6.1 K/mcL (4.5-11.0)
[2020-02-16] MEDS: 0.9 % SODIUM CHLORIDE 1,000 ML IV SCH ×2 (06:58→21:24)
[2020-02-16] MEDS: BUDESONIDE 0.5 MG/2 ML AMPUL.NEB NEB SCH ×2 (06:59→21:20)
[2020-02-16] MEDS: DOCUSATE SODIUM 100 MG CAPSULE PO SCH ×2 (07:00→21:18)
[2020-02-16 07:28] LABS: ALT/SGPT 23 U/L (<40); AST/SGOT 31 U/L (<32); Albumin/Globulin Ratio 1.4 (1.0-2.3); Alkaline Phosphatase 132 U/L (39-117); Bilirubin,Direct < 0.2 mg/dL (<0.3); Bilirubin,Total 0.3 mg/dL (0.1-1.0); Blood Urea Nitrogen 18 mg/dL (8-23); Calcium 8.1 mg/dL (8.6-10.4); Carbon Dioxide 24 mmol/L (22-30); Chloride 104 mmol/L (96-108); Globulin 2.2 gm/dL (2.2-3.7); Glomerular Filtration Rate 82; Glucose 107 mg/dL (70-105); Lactate Dehydrogenase 174 U/L (135-225); Phosphorous 2.2 mg/dL (2.5-4.5); Triglycerides 72 mg/dL (<150); Uric Acid 5.6 mg/dL (2.5-8.0)
[2020-02-16] MEDS: GABAPENTIN 300 MG CAPSULE PO SCH ×2 (08:23→21:19)
[2020-02-16] MEDS: MULTIVIT,THER IRON,CA,FA & MIN 1 TABLET PO SCH (08:23)
[2020-02-16] MEDS: PROPRANOLOL 40 MG TABLET PO SCH ×2 (08:23→21:19)
[2020-02-16] MEDS: HEPARIN 5,000 UNIT/ML VIAL SQ SCH ×2 (08:24→21:18)
[2020-02-16] MEDS: VANCOMYCIN 1,000 MG in 0.9 % SODIUM CHLORIDE 250 ML IV SCH (09:03)
--- NOTE | 2020-02-16 10:07 | XRay Report ---
HISTORY: Fever, follow-up bilateral pneumonia FINDINGS: There are generalized alveolar infiltrates in both lungs with the greatest consolidation in the right lower lobe. These have become worse, especially on the right side since the prior exam done on 02/14/20. Lung volumes are normal. Tiny right-sided pleural effusion has developed. The heart size is normal. No adenopathy is detected. There are clips in the left axilla. IMPRESSION: Worsening bilateral pneumonia Interpreted and Authenticated by: Pool Radford 02/16/20
[2020-02-16] MEDS: LEVOFLOXACIN 750 MG/150 ML BAG IV SCH (10:21)
--- NOTE | 2020-02-16 10:51 | Internal Med Progress Note ---
SUBJECTIVE Subjective Patient information: Note initiated : 02/16/20 at 10:47 am Service Date, if different from initiated Date: [] Patient: Angie Balderas a 79 y/o F admitted on 02/14/20 for fever, altered LOC. Chief Complaint: [] Interval history: History of present illness: Ms. Balderas is a 79 year old F with known history of breast cancer/hypertension who lives with her and presents to the ER for evaluation. Patient has been experiencing shaking chills/fever/cough and shortness of breath since late yesterday evening. She woke up this morning confused and feeling puny with associated malaise but no diarrhea or nausea or vomiting. With increasing concerns patient's called 911 and was brought into the ER. Initial work-up was consistent with severe sepsis with elevated white count/fever of 102.5/tachycardia tachypnea and hypoxia. Chest imaging consistent with multifocal bilateral pneumonia. Patient was started on antibio tic coverage after cultures were drawn. Covid 19 test was negative. Hospital service was consulted for admission in light of above. At the time of evaluation patient is feeling a lot better. She is able to talk and provide a detailed history. She denies recent sick contacts. She has had back surgery 4 months ago and has been at home for the major part of the last few months. She denies changes in medications. She denies diarrhea, dysuria, bloody stool, chest pain, lightheadedness dizziness. She endorses to frequent symptoms of vertigo for which he undergoes vestibular rehab. 02/14-patient doing a lot better. White count down from 16.4-11.4. Currently on room air. Tachypnea improved. Blood pressure stable. Transfer to medical floor. COVID-19 negative. LFTs downtrending. Tachycardia improving. Continuing antibiotic coverage on Levaquin/vancomycin 02/15-patient clinically better. White count down from 16.4-6.1. Continuing antibiotic coverage. Currently on room air. Stable hemodynamics. Improving endorgan dysfunction. Phosphorus 2.2 start replacement. Interval chest imaging worsening pneumonia. Anticipate additional 48 hours hospitalization. Remains afebrile. Constitutional Vitals: Vital Signs Temp Pulse Resp BP Pulse Ox 98.1 F 76 18 120/63 97 02/16/20 07:43 02/16/20 08:00 02/16/20 08:00 02/16/20 07:43 02/16/20 08:00 Period Temp Pulse Resp BP Sys/Restrepo Pulse Ox Last 24 Hr 97.8 F-98.7 F 68-103 16-24 58-149/48-75 95-98 Intake and Output 02/15/20 02/16/20 02/16/20 21:59 05:59 13:59 Intake Total 240 450 340 Output Total 650 300 0 Balance -410 150 340 Weight 67.222 kg Alert oriented Nonlabored breathing No anxiety Sitting on chair Intake & Output: Intake & Output 02/15/20 02/16/20 02/16/20 21:59 05:59 13:59 Intake Total 240 450 340 Output Total 650 300 0 Balance -410 150 340 Weight 67.222 kg Intake: IV 450 100 Vancomycin 1,000 mg In Sodium 250 Chloride 0.9% 250 ml @ 250 mls/ hr IV Q12H [facility] Rx#:[id number] Oral 240 240 Output: Urine Catheter Amount 650 300 0 Other: Meal Dinner Breakfast Percent of Meal Consumed 25% 25% Feeding Ability Independent Urine Appearance Clear Clear Clear Mucous Threads Uretheral ([place]) Clear Clear Urine Color Dark Yellow Dark Yellow Dark Yellow Uretheral ([place]) Dark Yellow Dark Yellow Urine Odor Strong OBJ DATA Labs CBC & Chem 7: 02/16/20 04:48 02/16/20 04:48 Labs: Abnormal Lab Results 02/16/20 02/16/20 02/15/20 04:48 04:48 05:25 WBC RBC 2.82 L Hgb 9.5 L Hct 28.6 L MCV 101.4 H MCH MPV 11.9 H Neut % (Auto) Lymph % (Auto) Eos % (Auto) 8.6 H Lymph # (Auto) 0.98 L [place] # (Auto) Absolute Neutrophils Carbon Dioxide 20 L Anion Gap 18.0 H Glucose 107 H 106 H Calcium 8.1 L Phosphorus 2.2 L GGT 107 H 120 H AST Alkaline Phosphatase 132 H 154 H Lactate Dehydrogenase 287 H C-Reactive Protein Total Protein 5.2 L Albumin 3.0 L Procalcitonin Urine Protein Urine Mucus 02/15/20 02/14/20 02/14/20 05:25 13:10 12:35 WBC 11.4 H RBC 3.43 L Hgb 11.7 L Hct MCV 106.4 H MCH 34.1 H MPV 11.5 H Neut % (Auto) 79.8 H Lymph % (Auto) 6.4 L Eos % (Auto) Lymph # (Auto) 0.73 L [place] # (Auto) 0.96 H Absolute Neutrophils 9.07 H Carbon Dioxide Anion Gap Glucose Calcium Phosphorus GGT AST Alkaline Phosphatase Lactate Dehydrogenase C-Reactive Protein Total Protein Albumin Procalcitonin 0.75 H Urine Protein 30 A Urine Mucus Few A 02/14/20 02/14/20 12:35 12:35 WBC 16.4 H RBC 3.91 L Hgb Hct MCV 102.0 H MCH 34.5 H MPV 11.5 H Neut % (Auto) 90.5 H Lymph % (Auto) 3.5 L Eos % (Auto) Lymph # (Auto) 0.57 L [place] # (Auto) Absolute Neutrophils 14.81 H Carbon Dioxide Anion Gap Glucose 149 H Calcium Phosphorus GGT AST 34 H Alkaline Phosphatase 191 H Lactate Dehydrogenase C-Reactive Protein 14.10 H Total Protein Albumin Procalcitonin Urine Protein Urine Mucus Meds: Medications Acetaminophen (Tylenol) 650 mg PO Q4-6HP PRN; Protocol PRN Reason: Per Pain Protocol/Fever > 101 Hydrocodone Bitart/Acetaminophen ([place] 10/325mg) 1 tab PO Q6H PRN; Protocol PRN Reason: Pain Albuterol/Ipratropium (Duoneb) 3 ml NEB Q4HP PRN PRN Reason: Shortness Of Breath Atorvastatin Calcium (Lipitor) 80 mg PO HS [facility] Last Admin: 02/15/20 21:47 Dose: 80 mg Documented by: Bisacodyl (Dulcolax) 10 mg [place] Q2-3DAYS PRN PRN Reason: Constipation Budesonide (Pulmicort) 0.5 mg NEB Q12 [facility] Last Admin: 02/16/20 06:59 Dose: Not Given Documented by: Docusate Sodium (Colace) 100 mg PO BID [facility] Last Admin: 02/16/20 07:00 Dose: Not Given Documented by: Gabapentin (Neurontin) 300 mg PO BID [facility] Last Admin: 02/16/20 08:23 Dose: 300 mg Documented by: Guaifenesin (Robitussin) 200 mg PO Q4HP PRN PRN Reason: Congestion Heparin Sodium (Porcine) (Heparin) 5,000 unit SQ Q12 [facility] Last Admin: 02/16/20 08:24 Dose: 5,000 unit Documented by: Levofloxacin (Levaquin) 750 mg in 150 mls @ 100 mls/hr IV Q24H [facility]; Protocol Last Admin: 02/16/20 10:21 Dose: 100 mls/hr Documented by: Magnesium Sulfate (Magnesium Sulfate) 2 gm in 50 mls @ 50 mls/hr IV UD PRN PRN Reason: MG = or < 1.7 Potassium Chloride 40 meq/ (Dextrose) 520 mls @ 130 mls/hr IV UD PRN PRN Reason: K+ = or < 3.5 Last Admin: 02/16/20 08:52 Dose: 130 mls/hr Documented by: Sodium Chloride (Sodium Chloride 0.9%) 1,000 mls @ 50 mls/hr IV .Q20H [facility] Stop: 02/18/20 00:49 Last Admin: 02/16/20 06:58 Dose: Not Given Documented by: Acetaminophen (Ofirmev) 650 mg in 65 mls @ 130 mls/hr IV Q6HP PRN; Protocol PRN Reason: Per Pain Protocol/Fever > 101 Metronidazole (Flagyl) 500 mg in 100 mls @ 100 mls/hr IV Q6H [facility]; Protocol Last Infusion: 02/16/20 07:01 Dose: Infused Documented by: Norepinephrine Bitartrate 8 mg (/ Sodium Chloride) 250 mls @ 18.75 mls/hr IV Q14H PRN; Protocol PRN Reason: Keep MAP>70 Vancomycin HCl 1,000 mg/ (Sodium Chloride) 250 mls @ 250 mls/hr IV DAILY [facility] Last Admin: 02/16/20 09:03 Dose: 250 mls/hr Documented by: Iron Carb/Multivit/Apple Press Operator/Folic Acid (Multivitamin W/Minerals) 1 tab PO DAILY [facility] Last Admin: 02/16/20 08:23 Dose: 1 tab Documented by: Meclizine HCl (Antivert) 25 mg PO BID PRN PRN Reason: vertigo Melatonin (Melatonin 3mg Tablet) 3 mg PO HSP PRN PRN Reason: Insomnia Nortriptyline HCl (Pamelor) 10 mg PO QHS [facility] Last Admin: 02/15/20 21:47 Dose: 10 mg Documented by: Ondansetron HCl (Zofran Odt) 4 mg SL Q4-6HP PRN; Protocol PRN Reason: Nausea And Vomiting Ondansetron HCl (Zofran) 4 mg IV Q4-6HP PRN; Protocol PRN Reason: Nausea And Vomiting Letrozole 2.5 Mg Tab 1 dose PO QHS [facility] Last Admin: 02/15/20 21:51 Dose: Not Given Documented by: Polyethylene Glycol (Miralax) 17 gm PO DAILYP PRN PRN Reason: Constipation Potassium Chloride (Klor-Con) 40 meq PO DAILYP PRN PRN Reason: K+ < 3.5 Propranolol HCl (Inderal) 40 mg PO BID [facility] Last Admin: 02/16/20 08:23 Dose: 40 mg Documented by: Senna/Docusate Sodium (Senna Plus Tablet) 1 tab PO HS [facility] Last Admin: 02/15/20 21:49 Dose: Not Given Documented by: Sodium Chloride (Saline Flush) 10 ml IV Q8 [facility] Last Admin: 02/16/20 06:06 Dose: Not Given Documented by: Tramadol HCl (Ultram) 50 mg PO Q4 PRN; Protocol PRN Reason: Pain Vancomycin HCl (Vancomycin Per Pharmacy) 1 order IV UD [facility]; Protocol A/P Narrative A/P Narrative: * Severe sepsis with endorgan dysfunction- clinical improvement noted on Broad antibiotic coverage, improved endorgan dysfunction. White count down to 6.5. * Bilateral multifocal Pneumonia -interval worsening noted on chest imaging. Continue Levaquin/vancomycin/Flagyl for anaerobes/GNR/GPC coverage * Acute respiratory failure with hypoxia continue supplemental oxygen. Secondary to pneumonia * History of hypertension continue thiazide neuropathy continue nortriptyline/gabapentin * History of breast cancer continue home dose letrozole * History of vertigo on meclizine * Hyperlipidemia on statin * Prophylaxis Heparin Plan * Continue antibiotic coverage * Pulmonary toilet/therapies * Pre-existing medical condition management on home medications * Nutrition support * Discharge planning likely in 48 hours Time Spent With Patient Time: Total time spent is greater than 50% in coordination of care (as documented) at patient's floor/unit and/or counseling patient: QUALITY VTE Deep Vein Thrombosis/Pulmonary Embolism Present on Admission: No
[2020-02-16] MEDS: SENNOSIDES/DOCUSATE SODIUM 1 TAB TABLET PO SCH (21:18)
[2020-02-16] MEDS: NORTRIPTYLINE 10 MG CAPSULE PO SCH (21:19)
[2020-02-16] MEDS: ATORVASTATIN 40 MG TABLET PO SCH (21:19)
[2020-02-17] MEDS: metroNIDAZOLE 500 MG/100 ML BAG IV SCH (05:58)
[2020-02-17] MEDS: 0.9 % SODIUM CHLORIDE 10 ML SYRINGE IV SCH (06:44)
[2020-02-17] MEDS: 0.9 % SODIUM CHLORIDE 1,000 ML IV SCH (06:54)
[2020-02-17] MEDS: BUDESONIDE 0.5 MG/2 ML AMPUL.NEB NEB SCH (06:59)
[2020-02-17 07:06] LABS: ALT/SGPT 36 U/L (<40); AST/SGOT 53 U/L (<32); Albumin 2.9 gm/dL (3.2-5.2); Albumin/Globulin Ratio 1.3 (1.0-2.3); Alkaline Phosphatase 164 U/L (39-117); Bilirubin,Direct < 0.2 mg/dL (<0.3); Bilirubin,Total 0.2 mg/dL (0.1-1.0); Blood Urea Nitrogen 16 mg/dL (8-23); Calcium 8.5 mg/dL (8.6-10.4); Carbon Dioxide 22 mmol/L (22-30); Chloride 102 mmol/L (96-108); Globulin 2.2 gm/dL (2.2-3.7); Glomerular Filtration Rate 86; Glucose 102 mg/dL (70-105); Lactate Dehydrogenase 191 U/L (135-225); Phosphorous 2.4 mg/dL (2.5-4.5); Triglycerides 84 mg/dL (<150); Uric Acid 5.1 mg/dL (2.5-8.0)
[2020-02-17 07:46] LABS: Basophils # (Auto) 0.01 K/mcL (0.00-0.20); Basophils % (Auto) 0.2 % (0.0-2.0); Eosinophils # (Auto) 0.61 K/mcL (0.00-0.70); Eosinophils % (Auto) 10.2 % (0.0-7.0); Hematocrit 28.3 % (36.0-48.0); Hemoglobin 9.4 g/dL (12.0-15.0); Lymphocytes # (Auto) 1.22 K/mcL (1.50-4.80); Lymphocytes % (Auto) 20.3 % (15.0-49.0); Mean Cell Volume 101.4 fL (80.0-100.0); Mean Corpuscular HGB Conc 33.2 g/dL (31.0-36.0); Mean Platelet Volume 11.8 fL (7.4-10.4); Neutrophils % (Auto) 59.3 % (38.0-78.0); Platelet Count 176 K/mcL (140-440); RBC 2.79 M/mcL (4.00-5.20); Red Cell Distribution Width 12.4 % (11.5-14.5)
[2020-02-17] MEDS: MULTIVIT,THER IRON,CA,FA & MIN 1 TABLET PO SCH (08:08)
[2020-02-17] MEDS: DOCUSATE SODIUM 100 MG CAPSULE PO SCH (08:08)
[2020-02-17] MEDS: PROPRANOLOL 40 MG TABLET PO SCH (08:08)
[2020-02-17] MEDS: HEPARIN 5,000 UNIT/ML VIAL SQ SCH (08:09)
[2020-02-17] MEDS: GABAPENTIN 300 MG CAPSULE PO SCH (08:09)
[2020-02-17] MEDS: VANCOMYCIN 1,000 MG in 0.9 % SODIUM CHLORIDE 250 ML IV SCH (08:09)
--- NOTE | 2020-02-17 08:23 | Discharge Summary ---
Discharge Provider Provider Patient information: Note initiated : 02/17/20 at 8:20 am Service Date, if different from initiated Date: [] Patient: Angie Balderas a 79 y/o F admitted on 02/14/20 for fever, altered LOC. Discharge diagnosis * Severe sepsis with endorgan dysfunction-clinically resolved with aggressive management and antibiotic/crystalloids. White count normalized. Endorgan dysfunction resolved * Bilateral multifocal Pneumonia -interval worsening noted on chest imaging. However clinically much improved with resolution of leukocytosis and hypoxemia. Continue Levaquin/Flagyl for additional 4 days * Acute respiratory failure with hypoxia clinically resolved now on room air. * History of hypertension stable on home dose thiazide * neuropathy remained stable on home dose nortriptyline/gabapentin * History of breast cancer continue letrozole * History of vertigo on meclizine * Hyperlipidemia on statin Brief hospital course History of present illness: Ms. Balderas is a 79 year old F with known history of breast cancer/hypertension who lives with her and presents to the ER for evaluation. Patient has been experiencing shaking chills/fever/cough and shortness of breath since late yesterday evening. She woke up this morning confused and feeling puny with associated malaise but no diarrhea or nausea or vomiting. With increasing concerns patient's called 911 and was brought into the ER. Initial work-up was consistent with severe sepsis with elevated white count/fever of 102.5/tachycardia tachypnea and hypoxia. Chest imaging consistent with multifocal bilateral pneumonia. Patient was started on antibiotic coverage after cultures were drawn. Covid 19 test was negative. Hospital service was consulted for admission in light of above. At the time of evaluation patient is feeling a lot better. She is able to talk and provide a detailed history. She denies recent sick contacts. She has had back surgery 4 months ago and has been at home for the major part of the last few months. She denies changes in medications. She denies diarrhea, dysuria, bloody stool, chest pain, lightheadedness dizziness. She endorses to frequent symptoms of vertigo for which he undergoes vestibular rehab. 02/14-patient doing a lot better. White count down from 16.4-11.4. Currently on room air. Tachypnea improved. Blood pressure stable. Transfer to medical floor. COVID-19 negative. LFTs downtrending. Tachycardia improving. Continuing antibiotic coverage on Levaquin/vancomycin 02/15-patient clinically better. White count down from 16.4-6.1. Continuing antibiotic coverage. Currently on room air. Stable hemodynamics. Improving endorgan dysfunction. Phosphorus 2.2 start replacement. Interval chest imaging worsening pneumonia. Anticipate additional 48 hours hospitalization. Remains afebrile. 02/16-patient doing well. Leukocytosis resolved. Currently on room air. Much improved clinically. Ambulating. Fever defervesced. Endorgan dysfunction resolved. Tolerating diet. Discharging home on additional 4 days oral antibiotics. No concerns expressed by nursing staff. Recommend follow-up with PCP in 5 to 7 days. Date of admission: 02/14/20 20:17 Discharge date: 02/17/20 Primary care physician: Salvador Ontiveros MD Consults: 02/14/20 Consult to Physician [CONS] Stat Comment: Consulting Provider: Jose F Dickson Reason For Exam: Physician to Consult Discharge Meds Discharge Medications Home Medications atorvastatin 80 mg tablet 80 mg PO DAILY 08/08/19 [History Confirmed 02/16/20 Last Taken Unknown] gabapentin 300 mg capsule 300 mg PO BID cap 08/08/19 [History Confirmed 02/16/20 Last Taken Unknown] hydrochlorothiazide 25 mg tablet 25 mg PO DAILY 08/08/19 [History Confirmed 02/16/20 Last Taken Unknown] letrozole 2.5 mg tablet 2.5 mg PO QHS 08/08/19 [History Confirmed 02/16/20 Last Taken Unknown] nortriptyline 10 mg capsule 10 mg PO QHS 08/08/19 [History Confirmed 02/16/20 Last Taken Unknown] nitrofurantoin macrocrystal 100 mg PO Q12H #10 cap 02/04/20 [Rx Confirmed 02/15/20 Last Taken Unknown] meclizine 25 mg tablet 25 mg PO BID PRN #20 tab 02/07/20 [Rx Confirmed 02/15/20 Last Taken Unknown] ascorbate calcium (vitamin C) 500 mg PO QDAY 02/15/20 [History Confirmed 02/16/20 Last Taken Unknown] aspirin 81 mg tablet,delayed release 81 mg PO QDAY 02/15/20 [History Confirmed 02/16/20 Last Taken Unknown] benazepril 20 mg PO QDAY 02/15/20 [History Confirmed 02/16/20 Last Taken Unknown] cetirizine 10 mg capsule 10 mg PO QDP PRN cap 02/15/20 [History Confirmed 02/16/20 Last Taken Unknown] cholecalciferol (vitamin D3) 125 mcg (5,000 unit) capsule 125 mcg PO QDAY 02/15/20 [History Confirmed 02/16/20 Last Taken Unknown] famotidine-Ca carb-mag hydrox 10 mg-800 mg-165 mg chewable tablet 1 tab PO QDAY PRN 02/15/20 [History Confirmed 02/16/20 Last Taken Unknown] ferrous sulfate 325 mg PO QDAY 02/15/20 [History Confirmed 02/16/20 Last Taken Unknown] hydrocodone-acetaminophen 1 tab PO Q6H PRN 02/15/20 [History Confirmed 02/16/20 Last Taken Unknown] propranolol 40 mg PO BID 02/15/20 [History Confirmed 02/16/20 Last Taken Unknown] ranitidine HCl 150 mg capsule 150 mg PO QDAY 02/15/20 [History Confirmed 02/16/20 Last Taken Unknown] tramadol 50 mg PO Q4 PRN 02/15/20 [History Confirmed 02/16/20 Last Taken Unknown] levofloxacin 750 mg PO DAILY #4 tab 02/17/20 [Rx Last Taken Unknown] metronidazole [Flagyl] 500 mg PO Q8H #12 tab 02/17/20 [Rx Last Taken Unknown] COURSE Hospital Course Hospital course: . Discharge diagnosis: . Time Spent with Patient Time attestation: Total time spent providing and/or coordinating discharge services: EXAM Constitutional Vitals: Temp Pulse Resp BP Pulse Ox 98.4 F 78 18 125/66 96 02/17/20 08:00 02/17/20 08:00 02/17/20 08:00 02/17/20 08:00 02/17/20 08:00 Discharge Data Data Completed and Pending Labs on day of discharge: Labs from last 24 hours 02/17/20 02/17/20 02/16/20 05:21 05:21 07:52 WBC 6.0 RBC 2.79 L Hgb 9.4 L Hct 28.3 L MCV 101.4 H MCH 33.7 MCHC 33.2 RDW 12.4 Plt Count 176 MPV 11.8 H Neut % (Auto) 59.3 Lymph % (Auto) 20.3 [place] % (Auto) 10.0 Eos % (Auto) 10.2 H Baso % (Auto) 0.2 Lymph # (Auto) 1.22 L [place] # (Auto) 0.60 Eos # (Auto) 0.61 Baso # (Auto) 0.01 Absolute Neutrophils 3.56 Sodium 135 Potassium 4.1 Chloride 102 Carbon Dioxide 22 Anion Gap 11.0 BUN 16 Creatinine 0.6 GFR Calculation 86 Glucose 102 Uric Acid 5.1 Calcium 8.5 L Phosphorus 2.4 L Magnesium 1.6 Total Bilirubin 0.2 Direct Bilirubin < 0.2 GGT 171 H AST 53 H ALT 36 Alkaline Phosphatase 164 H Lactate Dehydrogenase 191 Total Protein 5.1 L Albumin 2.9 L Globulin 2.2 Albumin/Globulin Ratio 1.3 Triglycerides 84 Vancomycin Trough 18.7 Preliminary micro results at discharge 02/14/20 12:40 Blood Culture - Preliminary Blood 02/14/20 12:35 Blood Culture - Preliminary Blood Discharge Plan Patient/Caregiver Discharge Instructions Activity: increase activity as tolerated Diet: Regular Diet Activity Restrictions/Additional Instructions: Continue antibiotic additional 4 days Return to ER if worsening fever chills nausea vomiting Follow-up PCP in 5 to 7 days Prescriptions: New levofloxacin [levofloxacin] 750 MG tablet 750 mg PO DAILY Qty: 4 RF: 0 metronidazole [Flagyl] 500 mg tablet 500 mg PO Q8H Qty: 12 RF: 0 Continued meclizine 25 mg tablet 25 mg PO BID PRN (Reason: vertigo) Qty: 20 RF: 0 Pepcid Complete 10-800-165 mg tablet,chewable 1 tab PO QDAY PRN (Reason: Acid Reflux) RF: 0 cetirizine 10 mg capsule 10 mg PO QDP PRN (Reason: Allergy Symptoms) RF: 0 aspirin [Adult Aspirin Regimen] 81 mg tablet,delayed release (DR/EC) 81 mg PO QDAY RF: 0 ferrous sulfate 325 mg PO QDAY RF: 0 ascorbate calcium (vitamin C) 500 mg PO QDAY RF: 0 cholecalciferol (vitamin D3) 125 mcg (5,000 unit) capsule 125 mcg PO QDAY RF: 0 ranitidine HCl 150 mg capsule 150 mg PO QDAY RF: 0 letrozole 2.5 mg tablet 2.5 mg PO QHS RF: 0 gabapentin 300 mg capsule 300 mg PO BID RF: 0 hydrochlorothiazide 25 mg tablet 25 mg PO DAILY RF: 0 atorvastatin 80 mg tablet 80 mg PO DAILY RF: 0 nortriptyline 10 mg capsule 10 mg PO QHS RF: 0 nitrofurantoin macrocrystal 100 mg capsule 100 mg PO Q12H Qty: 10 RF: 0 hydrocodone-acetaminophen 10-325 mg Tablet 1 tab PO Q6H PRN (Reason: Pain) RF: 0 tramadol 50 mg Tablet 50 mg PO Q4 PRN (Reason: Pain) RF: 0 propranolol 40 mg Tablet 40 mg PO BID RF: 0 benazepril 20 mg Tablet 20 mg PO QDAY RF: 0 Follow Up Plan Follow up with: Chuy Bates MD [Physician] - Salvador Ontiveros MD [Primary Care Provider] - Patient Disposition: Home, Self-Care Prognosis: Serious Rehab Potential: Fair I certify that the patient requires SNF services: No Overall status at discharge: patient is progressing back to baseline Discharge Orders: Discharge Order (Routine); Ordered 02/17/20 Ordered By: Jose F LAM VTE Deep Vein Thrombosis/Pulmonary Embolism Present on Admission: No
[2020-02-17] MEDS: LEVOFLOXACIN 750 MG/150 ML BAG IV SCH (09:42)
== END 2020-02-17 12:15 | disposition home or self-care (01) | DRG 871 ==
LOC: ED 11:53 → ICU 20:17 → MEDSUR 02-15 15:23
PROVIDERS: ADMIT Internal Medicine; ATTEND Internal Medicine